=== PATIENT | male | born 1955 | race Two or more races ===

== ENCOUNTER → 2019-07-20 | Outpatient (CLI) | payer OTHER | END | disposition home or self-care (01) | LOC: RAD 11:17 | DX: M25.561 Pain in right knee (principal); M25.562 Pain in left knee ==

== ENCOUNTER 2019-10-10 09:58 | Emergency (ER) | payer OTHER ==
[~2019-10-10] VITALS: Ht 172.7 cm; Wt 90.7 kg
[2019-10-10] MEDS ORDERED: ASPIR 8181 MG PO (10:18)
[2019-10-10] MEDS ORDERED: ATORVASTATIN CA10 MG PO (10:19)
[2019-10-10] MEDS ORDERED: ENALAPRIL MALEA10 MG PO (10:19)
== END 2019-10-10 11:45 | disposition home or self-care (01) ==
LOC: ER 09:58
DX: S90.112A Contusion of left great toe without damage to nail, initial encounter (principal); W22.8XXA Striking against or struck by other objects, initial encounter; Y93.89 Activity, other specified; Y92.89 Other specified places as the place of occurrence of the external cause; Y99.8 Other external cause status